=== PATIENT | male | born 1960 | race Caucasian/White ===

== ENCOUNTER 2018-04-27 21:24 | Emergency (ER) | payer OTHER, SELFPAY | END 2018-04-27 21:58 | LOC: ERS 21:24 | DX: S01.511A Laceration without foreign body of lip, initial encounter (principal); V49.9XXA Car occupant (driver) (passenger) injured in unspecified traffic accident, initial encounter | CPT/HCPCS: 99283 ==

== ENCOUNTER 2018-06-07 15:51 | Emergency (ER) | payer SELFPAY ==
--- NOTE | 2018-06-07 16:34 | CT ---
CT head noncontrast HISTORY: Fall. Seizure. FINDINGS: There is no evidence of acute intracranial hemorrhage or infarct. The ventricles appear nor mal in size, shape and position. There is no mass effect or shift of midline structures. Mild mucosal thickening within the maxillary sinuses. No air-fluid levels. Large extracranial scalp hematoma over lies right temporoparietal calvarium. No underlying depressed skull fracture. IMPRESSION: Large area of right posterior lateral scalp injury. No acute intracranial abnormalities a re demonstrated.
--- NOTE | 2018-06-07 16:39 | CT ---
CT cervical spine noncontrast HISTORY: Fall. Neck injury. FINDINGS: Vertebral body heights and alignment are maintained. Prominent disc space narrowing and ost eophytosis throughout the cervical spine and the cervicothoracic junction. Multilevel central canal a nd foraminal stenoses. No acute fracture or dislocation. No traumatic disc herniation is apparent. Th ere is calcification at each carotid bifurcation. IMPRESSION: Prominent degenerative changes cervical spine. No acute osseous abnormalities are demonst rated. Atherosclerosis.
[2018-06-07 16:48] LABS: #Basophils 0.1 thou/uL (0.0-0.2); #Lymphocytes 0.4 thou/uL (1.20-3.40); #Monocytes 0.3 thou/uL (0.11-0.59); %Eosinophils 0.4 % (0.0-10.0); %Lymphocytes 7.6 % (21.0-51.0); %Monocytes 4.5 % (0.0-10.0); %Neutrophils 86.5 % (42.0-75.0); Hemoglobin 14.4 g/dL (14.0-18.0); Mean Corpuscular HGB CONC 31.9 g/dL (32.0-36.0); Mean Corpuscular Hemoglobin 31.6 pg (27.0-31.0); Mean Corpuscular Volume 99.1 fL (78.0-98.0); Mean Platelet Volume 5.9 fL (7.4-10.4); Platelet Count 249 thou/uL (130-400); RBC Distribution Width 12.2 % (11.5-14.5); Red Blood Cell (RBC) Count 4.55 mill/uL (4.70-6.10); White Blood Cell (WBC) Count 5.7 thou/uL (4.8-10.8)
[2018-06-07 17:09] LABS: ALT (SGPT) 57 U/L (8-55); AST (SGOT) 34 U/L (5-34); Albumin 4.4 g/dL (3.5-5.0); Alkaline Phosphatase 68 U/L (40-150); Anion Gap 17 mmol/L (10-20); BUN (Urea Nitrogen) 10 mg/dL (8.4-25.7); Bilirubin, Total 0.5 mg/dL (0.2-1.2); CK (CPK) 177 U/L (30-200); Calc. Creatinine Clearance 0 mL/min (70-130); Calcium 9.6 mg/dL (7.8-10.44); Carbon Dioxide 28 mmol/L (22-29); Chloride 97 mmol/L (98-107); Estimated GFR-MDRD Greater than 90; Globulin 3.2 g/dL (2.4-3.5); Glucose 156 mg/dL (70-105); Potassium 4.3 mmol/L (3.5-5.1); Protein, Total 7.6 g/dL (6.0-8.3); Sodium 138 mmol/L (136-145)
== END 2018-06-07 17:40 | disposition home or self-care (01) ==
LOC: ERS 15:51
DX: S09.90XA Unspecified injury of head, initial encounter (principal); R56.9 Unspecified convulsions; I10 Essential (primary) hypertension; M10.9 Gout, unspecified; W01.0XXA Fall on same level from slipping, tripping and stumbling without subsequent striking against object, initial encounter
CPT/HCPCS: 36415; 70450; 72125; 80053; 82550; 84146; 85025; 93005

== ENCOUNTER 2019-04-30 21:35 | Emergency (ER) | payer SELFPAY ==
[2019-04-30] MEDS ORDERED: Lorazepam 2 MG/ML VIAL ONE (22:20)
[2019-04-30] MEDS ORDERED: Multivitamins, Adult 10 ML, Folic Acid 1 MG, Thiamine HCl 100 MG in Dextrose 5 %-0.45 %... IV SCH (22:30)
[2019-04-30 22:31] LABS: #Basophils 0.1 thou/uL (0.0-0.2); #Eosinphils 0.2 thou/uL (0.0-0.7); #Lymphocytes 1.3 thou/uL (1.20-3.40); #Neutrophils 7.8 thou/uL (1.40-6.50); %Basophils 0.5 % (0.0-1.0); %Eosinophils 1.5 % (0.0-10.0); %Lymphocytes 12.8 % (21.0-51.0); %Monocytes 9.9 % (0.0-10.0); %Neutrophils 75.4 % (42.0-75.0); Hemoglobin 15.4 g/dL (14.0-18.0); Mean Corpuscular HGB CONC 32.8 g/dL (32.0-36.0); Mean Corpuscular Hemoglobin 31.7 pg (27.0-31.0); Mean Corpuscular Volume 96.9 fL (78.0-98.0); Mean Platelet Volume 6.1 fL (7.4-10.4); Platelet Count 349 thou/uL (130-400); Red Blood Cell (RBC) Count 4.85 mill/uL (4.70-6.10); White Blood Cell (WBC) Count 10.4 thou/uL (4.8-10.8)
[2019-04-30] MEDS ORDERED: levETIRAcetam 1000 MG/100 ML PREMIX BAG ONE (22:47)
[2019-04-30] MEDS ORDERED: levETIRAcetam 500 MG/100 ML PREMIX BAG ONE (22:47)
[2019-04-30] MEDS ORDERED: Propofol 1,000 MG/100 ML VIAL IV ONE (22:47)
[2019-04-30 22:48] LABS: ALT (SGPT) 41 U/L (8-55); AST (SGOT) 21 U/L (5-34); Albumin 4.7 g/dL (3.5-5.0); Alcohol Less than 10 mg/dL (Less than 10); Alkaline Phosphatase 80 U/L (40-110); Anion Gap 18 mmol/L (10-20); BUN (Urea Nitrogen) 19 mg/dL (8.4-25.7); Bilirubin, Total 0.6 mg/dL (0.2-1.2); Calc. Creatinine Clearance 0 mL/min (70-130); Calcium 9.7 mg/dL (7.8-10.44); Carbon Dioxide 29 mmol/L (22-29); Chloride 96 mmol/L (98-107); Estimated GFR-MDRD Greater than 90; Glucose 116 mg/dL (70-105); Magnesium 1.9 mg/dL (1.6-2.6); Potassium 4.8 mmol/L (3.5-5.1); Protein, Total 7.7 g/dL (6.0-8.3); Sodium 138 mmol/L (136-145)
--- NOTE | 2019-04-30 22:48 | CT ---
Exam: CT brain PROVIDED CLINICAL HISTORY: Altered mental status COMPARISON: 06/07/2018 FINDINGS: The ventricular system is normal in size and morphology. No evidence for intracranial hemorrhage or mass effect. The extracranial soft tissues and osseous structures demonstrate no evidence for an acute abnormality. IMPRESSION: No evidence for intracranial hemorrhage or mass effect.
[2019-04-30] MEDS ORDERED: Rocuronium Bromide 10 MG/ML (10ML VIAL) ONE ×2 (22:55→23:56)
[2019-04-30] MEDS ORDERED: Rocuronium Bromide 50 MG/5 ML VIAL ONE ×2 (22:57→23:58)
[2019-04-30 23:40] LABS: Actual Bicarbonate (HCO3a) 29.6 mEq/L (22-28); Analyzer IN Cardio ER; CO2 Tension 47.6 mmHg (35.0-45.0); Calcium, Ionized 1.15 mmol/L (1.12-1.30); Carboxyhemoglobin (COHb) 0.1 gm% (0.0-3.0); Hemoglobin (Hb) 15.8 g/dL (14.0-18.0); Potassium - ABG Lab 3.83 mmol/L (3.70-5.30); pH, Arterial 7.41 (7.35-7.45)
[2019-04-30] MEDS ORDERED: Midazolam HCl 5 mg/ml Vial ONE ×2 (23:40→23:58)
[2019-05-01] MEDS ORDERED: Succinylcholine Chloride 20 MG/ML 10 ml SYRINGE FS ONE ×2 (00:01)
[2019-05-01 00:37] LABS: Puncture Site L RADIAL
[2019-05-01] MEDS ORDERED: Norepinephrine 8 MG/0.9% NS 250 ML ONE (00:38)
[2019-05-01] MEDS ORDERED: Propofol 1,000 MG/100 ML VIAL IV ONE (01:20)
[2019-05-01 01:42] LABS: Bacteria/HPF None Seen HPF (None Seen); Bilirubin Negative (Negative); Blood, Urine Negative (Negative); Clarity Clear (Clear); Glucose, Urine (Dipstick) Normal (Negative); Leukocyte Negative Leu/uL (Negative); Nitrite Negative (Negative); Protein, Urine (Dipstick) 30 mg/dL (Neg-Trace); RBC/HPF 0-3 HPF (0-3); Squamous Epithelial 0-3 HPF (0-3); Urobilinogen 3 mg/dL (Less than 2); WBC/HPF 0-3 HPF (0-3)
[2019-05-01 01:52] LABS: Amphetamine Not Detected (NotDetected); Barbiturates Screen Not Detected (NotDetected); Benzodiazepine Screen Detected (NotDetected); Cocaine Metabolite Screen Not Detected (NotDetected); Medtox Control Line Valid? VALID (VALID); Medtox Reader # READER 1; Methadone Not Detected (NotDetected); Methamphetamine Not Detected (NotDetected); Opiate Screen Not Detected (NotDetected); Oxycodone Screen Not Detected (NotDetected); Phencyclidine (PCP) Not Detected (NotDetected); THC/Cannabinoid Screen Not Detected (NotDetected); Tricyclic Screen Not Detected (NotDetected)
--- NOTE | 2019-05-01 09:38 | RAD ---
PORTABLE SUPINE CHEST: Date: 04/30/2019 INDICATION: Chest pain. FINDINGS/IMPRESSION: ET tube, NG tube, and central line appear normally positioned. Mild elevation right hemidiaphragm. Th e lungs appear well aerated and clear with no focal infiltrate. POS: [facility]
--- NOTE | 2019-05-07 15:19 | EKG ---
Test Reason : Blood Pressure : / mmHG Vent. Rate : 087 BPM Atrial Rate : 087 BPM P-R Int : 160 ms QRS Dur : 142 ms QT Int : 372 ms P-R-T Axes : 054 -16 049 degrees QTc Int : 447 ms Normal sinus rhythm Right bundle branch block Abnormal ECG Confirmed by MELISSA CHA ([id number]), international editorial producer AIDA TEJEDA ([id number]) on 05/07/2019 3:19:14 PM Referred By: Confirmed By:MELISSA CHA
== END 2019-05-01 01:38 | disposition short-term general hospital (02) ==
LOC: ERS 21:35
DX: J96.90 Respiratory failure, unspecified, unspecified whether with hypoxia or hypercapnia (principal); R56.9 Unspecified convulsions; G93.41 Metabolic encephalopathy; I10 Essential (primary) hypertension; M10.9 Gout, unspecified
CPT/HCPCS: 31500; 36556; 51702; 70450; 71045; 80053; 80306; 80307; 81003; 81015; 82140; 82805; 83735; 84484; 85025; 93005; 94002; 96365; 96366; 96367; 96368; 96375; 99292; J1953; J2060; J2250; J2704; J3411; J7042